=== PATIENT | female | born 1930 | race Caucasian/White ===

== ENCOUNTER → 2017-10-14 | Day surgery (SDC) | payer MEDICARE, OTHER ==
[~2017-10-14] MED LIST: BYSTOLIC10 MG PO; COQ-1030 MG; COUMADIN5 MG PO; DEXAMETHASONE SOD PHOS 10 MG/1 ML VIAL ONE; EXEMESTANE25 MG PO; FUROSEMIDE40 MG PO; HYDRALAZINE HCL10 MG PO; IRBESARTAN150 MG PO; LEVOTHYROXINE50 MCG PO; LIDOCAINE HCL 1% 30ML-PF VIAL ONE; METFORMIN HCL500 MG PO; MULTIVITAMINS1 EAC7; POTASSIUM CHLO10 MEQ PO; PROPOFOL IV EMULSION 10 MG/ML 20 ML VIAL ONE; WARFARIN SODIU2.5 MG PO; [UNRECOGNIZED DRUG - REMARK]
--- OUTSIDE RECORDS SUMMARY | 2017-10-14 06:03 | XMS REPORT | Clinical Summary ---
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 Disp. Refills Start End Date Status Date exemestane (AROMASIN) 25 08/23/19 Active mg chemo tablet 16 potassium chloride TAKE TWO CAPSULES BY 180 capsule 0 01/12/20 Active (MICRO-K) 10 MEQ CR MOUTH DAILY WITH FOOD 17 capsule meclizine (ANTIVERT) 25 TAKE ONE TABLET BY MOUTH 30 tablet 0 02/19/20 Active mg tablet THREE TIMES A DAY 17 NEEDED hydrALAZINE (APRESOLINE) TAKE ONE TABLET BY MOUTH 270 tablet 4 Active 25 MG tablet THREE TIMES A DAY (WITH 17 THE 50MG DOSE FOR A TOTAL OF 75MG, THREE TIMES A DAY) furosemide (LASIX) 40 mg TAKE ONE TABLET BY MOUTH 30 tablet 11 Active tablet DAILY 17 metFORMIN XR TAKE ONE TABLET BY MOUTH 90 tablet 1 05/06/20 05/06/20 Active (GLUCOPHAGE-XR) 500 mg 24 DAILY WITH EVENING MEAL 17 18 hr tablet BYSTOLIC 20 mg tablet TAKE ONE TABLET BY MOUTH 30 tablet 11 05/07/20 Active DAILY 17 levothyroxine (SYNTHROID, TAKE ONE TABLET BY MOUTH 90 tablet 0 Active LEVOXYL) 50 mcg tablet DAILY 18 irbesartan (AVAPRO) 300 TAKE ONE TABLET BY MOUTH 90 tablet 0 08/03/19 Active MG tablet DAILY 18 warfarin (COUMADIN) 5 MG TAKE ONE TABLET (5MG) BY 68 tablet 0 Active tablet MOUTH EVERY OTHER DAY; 18 ALTERNATING WITH ONE-HALF TABLET (2.5MG) EVERY OTHER DAY (5MG, 2.5MG, 5MG, 2.5MG CYCLE) potassium chloride TAKE TWO CAPSULES BY 158 capsule 0 09/19/19 Active (MICRO-K) 10 MEQ CR MOUTH DAILY WITH FOOD 18 capsule hydrALAZINE (APRESOLINE) TAKE ONE TABLET BY MOUTH 270 tablet 0 Active 50 MG tablet THREE TIMES A DAY (TAKE 18 WITH 25MG DOSE FOR A TOTAL OF 75MG THREE TIMES A DAY) blood sugar diagnostic CHECK BLOOD SUGAR TWO 200 strip 7 09/23/19 Active strips (ACCU-CHEK ALEXANDREA TIMES A DAY 18 PLUS TEST STRP) strip test strips blood-glucose meter Check glucose BID 1 each 0 09/23/19 Active (ACCU-CHEK ALEXANDREA PLUS 18 METER) misc lancets (ACCU-CHEK Check glucose bid 200 each 7 09/23/19 Active MULTICLIX LANCET) misc 18 hydroCHLOROthiazide TAKE ONE TABLET BY MOUTH 90 tablet 0 09/28/19 Active (HYDRODIURIL) 25 MG DAILY 18 tablet potassium chloride TAKE TWO CAPSULES BY 158 capsule 0 09/28/19 Active (MICRO-K) 10 MEQ CR MOUTH DAILY WITH FOOD 18 capsule meclizine (ANTIVERT) 25 TAKE ONE TABLET BY MOUTH 30 tablet 0 08/16/19 02/19/20 Discontin mg tablet THREE TIMES A DAY 16 17 ued NEEDED furosemide (LASIX) 40 MG TAKE ONE TABLET BY MOUTH 30 tablet 10 12/05/19 Discontin tablet EVERY DAY 16 17 ued irbesartan (AVAPRO) 300 TAKE ONE TABLET BY MOUTH 90 tablet 2 01/04/20 11/07/19 Discontin MG tablet DAILY 16 17 ued hydrALAZINE (APRESOLINE) TAKE ONE TABLET BY MOUTH 270 tablet 8 03/12/20 Discontin 50 MG tablet THREE TIMES A DAY (WITH 16 17 ued 25MG DOSE, FOR A TOTAL OF 75MG THREE TIMES A DAY) hydrALAZINE (APRESOLINE) TAKE ONE TABLET BY MOUTH 270 tablet 8 03/31/20 Discontin 25 MG tablet THREE TIMES A DAY (WITH 16 17 ued THE 50MG DOSE, FOR A TOTAL OF 75MG, THREE TIMES A DAY) BYSTOLIC 20 mg tablet TAKE ONE TABLET BY MOUTH 90 tablet 3 05/08/20 05/06/20 Discontin DAILY 16 17 ued fluticasone (FLONASE) 50 PLACE TWO SPRAYS IN EACH 48 mL 3 05/22/19 06/04/19 Discontin mcg/actuation nasal spray NOSTRIL ONCE DAILY 17 18 ued warfarin (COUMADIN) 5 MG TAKE ONE TABLET BY MOUTH 90 tablet 2 08/03/19 Discontin tablet EVERY OTHER DAY 17 18 ued (ALTERNATING WITH 2.5MG DOSE) blood sugar diagnostic Check glucose BID 100 strip 8 08/11/19 Discontin strips (ACCU-CHEK ALEXANDREA 17 18 ued PLUS TEST STRP) strip test strips lancets (ACCU-CHEK Check glucose bid 100 each 3 08/19/19 09/23/19 Discontin MULTICLIX LANCET) misc 17 18 ued levothyroxine (SYNTHROID, TAKE ONE TABLET BY MOUTH 90 tablet 0 11/20/19 Discontin LEVOXYL) 50 mcg tablet DAILY 17 17 ued metFORMIN XR TAKE ONE TABLET BY MOUTH 90 tablet 2 08/22/19 05/06/20 Discontin (GLUCOPHAGE-XR) 500 mg 24 DAILY WITH EVENING MEAL 17 17 ued hr tablet potassium chloride TAKE TWO CAPSULES BY 180 capsule 0 08/22/1911/19 Discontin (MICRO-K) 10 MEQ CR MOUTH DAILY WITH FOOD 17 17 ued capsule hydroCHLOROthiazide TAKE ONE TABLET BY MOUTH 90 tablet 0 09/25/19 Discontin (HYDRODIURIL) 25 MG DAILY 17 17 ued tablet irbesartan (AVAPRO) 300 TAKE ONE TABLET BY MOUTH 90 tablet 1 11/07/19 05/06/20 Discontin MG tablet DAILY 17 17 ued levoFLOXacin (LEVAQUIN) Take 1 tablet (500 mg 7 tablet 0 11/17/19 500 MG tablet total) by mouth daily for 17 17 7 days. mupirocin (BACTROBAN) 2 % Apply topically 3 (three) 30 g 1 11/17/19 11/27/19 ointment times a day for 10 days. 17 17 levothyroxine (SYNTHROID, Take 1 tablet (50 mcg 90 tablet 3 11/20/19 08/03/19 Discontin LEVOXYL) 50 mcg tablet total) by mouth once 17 18 ued daily. potassium chloride TAKE TWO CAPSULES BY 180 capsule 0 11/20/1901/11 Discontin (MICRO-K) 10 MEQ CR MOUTH DAILY WITH FOOD 17 17 ued capsule furosemide (LASIX) 40 mg TAKE ONE TABLET BY MOUTH 30 tablet 3 03/12/20 Discontin tablet DAILY 17 17 ued hydroCHLOROthiazide TAKE ONE TABLET BY MOUTH 90 tablet 1 12/26/19 Discontin (HYDRODIURIL) 25 MG DAILY 17 17 ued tablet potassium chloride TAKE TWO CAPSULES BY 180 capsule 1 02/19/2006/26 Discontin (MICRO-K) 10 MEQ CR MOUTH DAILY WITH FOOD 17 18 ued capsule hydrALAZINE (APRESOLINE) TAKE ONE TABLET BY MOUTH 15 tablet 3 03/26/20 Discontin 50 MG tablet THREE TIMES A DAY (TAKE 17 17 ued WITH 25MG DOSE FOR A TOTAL OF 75MG THREE TIMES A DAY) furosemide (LASIX) 40 mg TAKE ONE TABLET BY MOUTH 30 tablet 0 04/14/20 Discontin tablet DAILY 17 17 ued hydroCHLOROthiazide TAKE ONE TABLET BY MOUTH 5 tablet 0 03/26/20 Discontin (HYDRODIURIL) 25 MG DAILY 17 17 ued tablet hydrALAZINE (APRESOLINE) TAKE ONE TABLET BY MOUTH 15 tablet 2 03/31/20 Discontin 50 MG tablet THREE TIMES A DAY (TAKE 17 17 ued WITH 25 MG DOSE FOR A TOTAL OF 75MG THREE TIMES A DAY ) hydrALAZINE (APRESOLINE) TAKE ONE TABLET BY MOUTH 90 tablet 1 09/19/19 Discontin 50 MG tablet THREE TIMES A DAY (TAKE 17 18 ued WITH 25 MG DOSE FOR A TOTAL OF 75MG THREE TIMES A DAY ) hydroCHLOROthiazide Take 1 tablet (25 mg 90 tablet 1 03/31/20 Discontin (HYDRODIURIL) 25 MG total) by mouth once 17 18 ued tablet daily. BYSTOLIC 20 mg tablet TAKE ONE TABLET BY MOUTH 30 tablet 0 05/06/20 05/07/20 Discontin DAILY 17 17 ued irbesartan (AVAPRO) 300 TAKE ONE TABLET BY MOUTH 90 tablet 0 05/06/20 08/03/19 Discontin MG tablet DAILY 17 18 ued fluticasone (FLONASE) 50 PLACE TWO SPRAYS IN EACH 48 mL 2 06/04/19 07/04/19 mcg/actuation nasal spray NOSTRIL ONCE DAILY 18 18 KLOR-CON SPRINKLE 10 mEq TAKE TWO CAPSULES BY 158 capsule 0 06/26/19 09/19/19 Discontin CR capsule MOUTH DAILY WITH FOOD 18 18 ued ACCU-CHEK ALEXANDREA PLUS TEST CHECK BLOOD SUGAR TWO 100 strip 7 09/11/19 09/23/19 Discontin STRP strip test strips TIMES A DAY 18 18 ued Active Problems Problem Noted Date Type 2 diabetes mellitus without complication, with long-term current use of insulin Hypothyroidism 11/17/2016 Essential hypertension 11/17/2016 Hyperlipidemia 11/17/2016 Abscess, vulva 11/17/2016 Overview: Cleanse with Hibiclens Hold Warfarin for the next couple of days till abscess drains Use warm compress Warfarin anticoagulation 11/17/2016 Stroke 05/17/2011 Breast cancer 05/17/2009 Overview: left DM (diabetes mellitus) Dvt femoral (deep venous thrombosis) Overview: x2 Hyperlipidemia Hypertension Obesity 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 Spinal stenosis Encounters Date Type Specialty Care Team Description 09/27/2017 Refill Internal Medicine Radha Talbert MD 09/26/2017 Refill Internal Medicine Radha Talbert MD 09/22/2017 Orders Only Internal Medicine Eveline Kaiser MA 09/18/2017 Refill Internal Medicine Radha Talbert MD 09/10/2017 Refill Internal Medicine Radha Talbert MD 09/03/2017 Telephone Internal Medicine Radha Talbert MD 08/02/2017 Refill Internal Radah Pettit MD 06/26/2017 Refill Internal Radha Pettit MD 06/04/2017 Refill Internal Medicine Radha Talbert MD 05/26/2017 Office Visit Internal Medicine Radha Talbert MD Type 2 diabetes mellitus without complication, without long-term current use of insulin (Primary Dx); 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; Spinal stenosis at L4-L5 level; Lymphedema of left upper extremity; Essential hypertension; Chronic bilateral thoracic back pain; Mixed hyperlipidemia; Acquired hypothyroidism 05/07/2017 Refill Internal Medicine Radha Talbert MD 05/06/2017 Refill Internal Radha Pettit MD 04/14/2017 Refill Internal Medicine Radha Talbert MD 03/31/2017 Orders Only Internal Medicine Eveline Kaiser MA 03/26/2017 Refill Internal Medicine Radha Talbert MD 03/12/2017 Refill Internal Medicine Radha Talbert MD 02/18/2017 Refill Internal Medicine Radha Talbert MD 02/18/2017 Refill Internal Medicine Radha Talbert MD 01/11/2017 Refill Internal Radha Pettit MD 12/25/2016 Refill Internal Radha Pettit MD 12/04/2016 Refill Internal Medicine Radha Talbert MD 11/19/2016 Refill Internal Medicine Radha Talbert MD 11/19/2016 Orders Only Internal Medicine Eveline Kaiser MA 11/16/2016 Office Visit Internal Medicine Radha Talbert MD Type 2 diabetes mellitus without complication, with long-term current use of insulin (Primary Dx); Hypothyroidism, unspecified type; Essential hypertension; Hyperlipidemia, unspecified hyperlipidemia type; Abscess, vulva; Warfarin anticoagulation 11/06/2016 Refill Internal Medicine Radha Talbert MD after 10/13/2016 Immunizations Name Dates Previously Given Next Due Influenza Trivalent 05/17/2014, 01/24/2014 Pneumococcal Conjugate 10/15/2014 13-Valent Tdap 10/15/2014 Family History Medical History Relation Name Comments Cancer Father Hearing loss Father Diabetes Mother Stroke Sister Diabetes Sister Heart disease Sister Relation Name Status Comments Father Mother Sister Sister Sister Social History Tobacco Use Types Packs/Day Years Used Date Never Smoker Smokeless Tobacco: Never Used Alcohol Use Drinks/Week oz/Week Comments No Sex Assigned at Date Recorded Not on file Last Filed Vital Signs Vital Sign Reading Time Taken Blood Pressure 137/63 05/26/2017 1:31 PM [employer] Pulse 67 05/26/2017 1:31 PM [employer] Temperature - - Respiratory Rate - - Oxygen Saturation - - Inhaled Oxygen - - Concentration Weight 103 kg (226 lb 6.4 oz) 05/26/2017 1:31 PM [employer] Height 157.5 cm (5' 2") 05/26/2017 1:31 PM [employer] Body Mass Index 41.41 05/26/2017 1:31 PM [employer] Plan of Treatment Date Type Specialty Care Team Description 11/30/2017 Office Visit Internal Medicine Radha Talbert MD [address] [place] [address] [phone] Health Maintenance Due Date Last Done Comments SHINGRIX VACCINE (#1) 1981 DIABETIC FOOT EXAM 05/26/2017 05/26/2016, 05/26/2016 INFLUENZA VACCINE 12/15/2017 03/17/2016, 05/17/2014, 01/24/2014 DIABETIC RETINAL EYE EXAM 04/16/2018 04/16/2016 PNEUMOCOCCAL Completed 10/15/2014 POLYSACCHARIDE VACCINE AGE 65 AND OVER PNEUMOCOCCAL-13 Completed 10/15/2014 ZOSTER VACCINE Excluded Results * CBC with platelet and differential (05/26/2017 2:21 PM) Only the most recent of 2 results within the time period is included. Component Value Ref Range WBC 10.3 3.8 - 10.8 Thousand/uL RBC 4.94 3.80 - 5.10 Million/uL HGB 15.9 (H) 11.7 - 15.5 g/dL HCT 45.4 (H) 35.0 - 45.0 % MCV 91.9 80.0 - 100.0 fL MCH 32.2 27.0 - 33.0 pg MCHC 35.0 32.0 - 36.0 g/dL RDW 13.2 11.0 - 15.0 % Platelet count 200 140 - 400 Thousand/uL MPV 12.5 7.5 - 12.5 fL Neutrophils, absolute 5,881 1,500 - 7,800 cells/uL Lymphocytes, absolute 2,843 850 - 3,900 cells/uL Monocytes, absolute 1,360 (H) 200 - 950 cells/uL Eosinophils, absolute 165 15 - 500 cells/uL Basophils, absolute 52 0 - 200 cells/uL Neutrophils 57.1 % Lymphocytes 27.6 % Monocytes 13.2 % Eosinophils 1.6 % Basophils + RC 0.5 % Specimen Performing Laboratory [facility] Narrative FASTING:NO FASTING: NO * Thyroid stimulating hormone (05/26/2017 2:21 PM) Only the most recent of 2 results within the time period is included. Component Value Ref Range TSH 1.98 0.40 - 4.50 mIU/L Specimen Performing Laboratory [facility] Narrative FASTING:NO FASTING: NO * Lipid panel (05/26/2017 2:21 PM) Only the most recent of 2 results within the time period is included. Component Value Ref Range Cholesterol, total 187 <200 mg/dL HDL cholesterol 61 >50 mg/dL Triglycerides 160 (H) <150 mg/dL LDL cholesterol 99 mg/dL (calc) calculated Comment: Reference range: <100 Desirable range <100 mg/dL for patients with CHD or diabetes and <70 mg/dL for diabetic patients with known heart disease. LDL-C is now calculated using the Laura calculation, which is a validated novel method providing better accuracy than the Friedewald equation in the estimation of LDL-C. Horacio MANN et al. JULIAN. 2013;310(19): 0081-5612 (http://education.Tapjoy/faq/GUZ458) Cholesterol/HDL ratio 3.1 <5.0 (calc) Non-HDL cholesterol 126 <130 mg/dL (calc) Comment: For patients with diabetes plus 1 major ASCVD risk factor, treating to a non-HDL-C goal of <100 mg/dL (LDL-C of <70 mg/dL) is considered a therapeutic option. Specimen Performing Laboratory [facility] Narrative FASTING:NO FASTING: NO * Comprehensive metabolic panel (05/26/2017 2:21 PM) Only the most recent of 2 results within the time period is included. Component Value Ref Range Glucose 121 (H) 65 - 99 mg/dL Comment: Fasting reference interval For someone without known diabetes, a glucose value between 100 and 125 mg/dL is consistent with prediabetes and should be confirmed with a follow-up test. BUN, whole blood 22 7 - 25 mg/dL Creatinine 1.09 (H) 0.60 - 0.88 mg/dL Comment: For patients >49 years of age, the reference limit for Creatinine is approximately 13% higher for people identified as -[place]. EGFR Non-Afr. [place] 46 (L) > OR=60 mL/min/1.73m2 EGFR 53 (L) > OR=60 mL/min/1.73m2 BUN/creatinine ratio 20 6 - 22 (calc) Sodium 143 135 - 146 mmol/L Potassium 3.8 3.5 - 5.3 mmol/L Chloride 105 98 - 110 mmol/L CO2 30 20 - 31 mmol/L Calcium 10.3 8.6 - 10.4 mg/dL Protein 6.3 6.1 - 8.1 g/dL Albumin, S 4.1 3.6 - 5.1 g/dL Globulin, total 2.2 1.9 - 3.7 g/dL (calc) Albumin/globulin ratio 1.9 1.0 - 2.5 (calc) Total bilirubin 2.0 (H) 0.2 - 1.2 mg/dL Alkaline phosphatase 60 33 - 130 U/L AST 26 10 - 35 U/L ALT 35 (H) 6 - 29 U/L Specimen Performing Laboratory [facility] Narrative FASTING:NO FASTING: NO * POC glycosylated hemoglobin (Hb A1C) (05/26/2017 1:43 PM) Only the most recent of 2 results within the time period is included. Component Value Ref Range POC Hemoglobin A1C 6.2 % Specimen Performing Laboratory Blood * POC INR (05/26/2017 1:43 PM) Only the most recent of 2 results within the time period is included. Component Value Ref Range POC INR 2.5 Specimen Performing Laboratory Blood * T4, free (11/16/2016 2:17 PM) Component Value Ref Range T4, free 1.4 0.8 - 1.8 ng/dL Specimen Performing Laboratory [facility] Narrative FASTING:YES after 10/13/2016 Insurance Payer Benefit Subscriber ID Type Phone Address Plan / Group MEDICARE MEDICARE xxxxxxxxxx Medicare [place], [place] PART A AND B [employer] xxxxxxxxxx [employer] [place]
[2017-10-14 06:45] LABS: BASOPHILS # (AUTO) 0.1 (0.0-0.1); BASOPHILS % 0.6 % (0.0-1.0); EOSINOPHILS # (AUTO) 0.2 (0.0-0.4); HEMOGLOBIN 15.9 g/dL (12.0-16.0); LYMPHOCYTES # (AUTO) 1.9 (1.0-3.2); MEAN CORPUSCULAR HEMOGLOBIN 32.3 pg (28-32); MEAN CORPUSCULAR HGB CONC 34.6 g/dL (31-35); MEAN CORPUSCULAR VOLUME 93.5 fL (81-99); MONOCYTES # (AUTO) 1.5 (0.2-0.8); MONOCYTES % 15.6 % (4.4-11.3); NEUTROPHILS # (AUTO) 5.8 (2.1-6.9); NEUTROPHILS % 60.7 % (38.7-80.0); PLATELET COUNT 197 x10e3/uL (140-360); RED BLOOD COUNT 4.92 x10e6/uL (3.6-5.1); RED CELL DISTRIBUTION WIDTH 13.6 % (11.7-14.4)
[2017-10-14 06:53] LABS: INR 1.06; PARTIAL THROMBOPLASTIN TIME 24.9 seconds (23.8-35.5)
== END | disposition home or self-care (01) ==
LOC: OR 06:01
PROVIDERS: ATTEND Physical Medicine & Rehabilitation Pain Medicine
DX: M47.26 Other spondylosis with radiculopathy, lumbar region (principal); M47.16 Other spondylosis with myelopathy, lumbar region; M46.1 Sacroiliitis, not elsewhere classified; G57.00 Lesion of sciatic nerve, unspecified lower limb; I10 Essential (primary) hypertension; E11.9 Type 2 diabetes mellitus without complications; E03.9 Hypothyroidism, unspecified; Z79.84 Long term (current) use of oral hypoglycemic drugs; Z79.01 Long term (current) use of anticoagulants; Z90.13 Acquired absence of bilateral breasts and nipples; Z96.659 Presence of unspecified artificial knee joint; Z85.3 Personal history of malignant neoplasm of breast; Z86.73 Personal history of transient ischemic attack (TIA), and cerebral infarction without residual deficits
CPT/HCPCS: 36415; 64483; 64484; 82948; 85025; 85610; 85730; 93005; J1100; J2001; 77003

== ENCOUNTER → 2017-10-28 | Day surgery (SDC) | payer MEDICARE, OTHER ==
[~2017-10-28] MED LIST changes: +BUPIVACAINE 0.25% 30ML SDV INJ ONE; +FENTANYL CITRATE/PF 100MCG/2 ML INJ ONE; +IOPAMIDOL 200 MG/ML 20 ML VIAL IT ONE; +MIDAZOLAM HCL 2 MG/2 ML VIAL ONE
== END | disposition home or self-care (01) ==
LOC: OR 05:47
PROVIDERS: ATTEND Physical Medicine & Rehabilitation Pain Medicine
DX: M47.26 Other spondylosis with radiculopathy, lumbar region (principal); G57.00 Lesion of sciatic nerve, unspecified lower limb; I10 Essential (primary) hypertension; E11.9 Type 2 diabetes mellitus without complications; Z85.3 Personal history of malignant neoplasm of breast; Z86.73 Personal history of transient ischemic attack (TIA), and cerebral infarction without residual deficits; E03.9 Hypothyroidism, unspecified
CPT/HCPCS: 36415; 64483; 64484; 77003; 82948; J1100; J2001; J2250; Q9966